=== PATIENT | female | born 1965 | race Two or more races ===

== ENCOUNTER → 2023-06-07 | Outpatient (CLI) | payer BC ==
[2023-06-07 10:05] LABS: Basophils # (auto) 0.1 10 ^3/uL (0-0.2); Basophils % (auto) 0.6 % (0.0-2.0); Eosinophils # (auto) 0.2 10 ^3/uL (0-0.8); Eosinophils % (auto) 1.8 % (0.0-7.0); Hematocrit 44.1 % (36.0-46.0); Hemoglobin 14.5 g/dL (12.2-16.2); Lymphocytes # (auto) 1.9 10 ^3/uL (0.4-5.4); Lymphocytes % (auto) 18.4 % (10.0-50.0); Mean Corpuscular Hemoglobin 30.2 pg (28.0-32.0); Mean Corpuscular Hgb Conc. 32.9 g/dL (32.0-36.0); Mean Corpuscular Volume 91.9 fL (80.0-100.0); Monocytes # (auto) 0.9 10 ^3/uL (0-1.3); Monocytes % (auto) 8.5 % (0.0-12.0); Neutrophils # (auto) 7.2 10 ^3/uL (1.6-8.6); Neutrophils % (auto) 70.7 % (37.0-80.0); Nucleated Red Blood Cells % 0.1 %; Red Blood Cells 4.79 10^6/uL (4.0-5.20); Red Cell Distribution Width 13.6 % (11.8-14.3); White Blood Cell 10.2 10^3/uL (4.4-10.8)
[2023-06-07 10:34] LABS: Alanine Aminotransferase 14 U/L (7-40); Albumin 4.5 g/dL (3.2-4.8); Alkaline Phosphatase 82 U/L (46-116); Anion Gap 7 (5-15); Aspartate Aminotransferase 16 U/L (13-40); BUN/Creatinine Ratio 10.7 (10.0-20.0); Blood Urea Nitrogen 9 mg/dL (9-23); Calcium 9.5 mg/dL (8.5-10.1); Carbon Dioxide 24 mmol/L (20-30); Chloride 107 mmol/L (98-107); Cholesterol 206 mg/dL (< 200); Glucose 91 mg/dL (74-106); HDL Cholesterol 44 mg/dL (40-59); LDL Cholesterol 146 mg/dL (< 100); Potassium 4.1 mmol/L (3.5-5.1); Sodium 138 mmol/L (136-145); Triglycerides 137 mg/dL (< 150)
[2023-06-07 10:35] LABS: Bilirubin, Total 0.3 mg/dL (0.2-1.0); Total Protein 6.6 g/dL (5.7-8.2)
== END | disposition home or self-care (01) ==
LOC: LAB 09:25
PROVIDERS: ATTEND Nurse Practitioner Family
DX: E66.01 Morbid (severe) obesity due to excess calories (principal); E03.9 Hypothyroidism, unspecified; E78.5 Hyperlipidemia, unspecified
CPT/HCPCS: 36415; 80053; 80061; 82306; 84439; 84443; 85025

== ENCOUNTER → 2024-05-08 | Outpatient (CLI) | payer BC ==
[2024-05-08 12:31] LABS: Basophils # (auto) 0.1 10 ^3/uL (0-0.2); Basophils % (auto) 0.8 % (0.0-2.0); Eosinophils # (auto) 0.2 10 ^3/uL (0-0.8); Eosinophils % (auto) 2.4 % (0.0-7.0); Hematocrit 42.5 % (36.0-46.0); Hemoglobin 14.6 g/dL (12.2-16.2); Lymphocytes # (auto) 2.1 10 ^3/uL (0.4-5.4); Lymphocytes % (auto) 21.9 % (10.0-50.0); Mean Corpuscular Hgb Conc. 34.4 g/dL (32.0-36.0); Mean Corpuscular Volume 92.9 fL (80.0-100.0); Monocytes % (auto) 10.7 % (0.0-12.0); Neutrophils # (auto) 6.2 10 ^3/uL (1.6-8.6); Neutrophils % (auto) 64.2 % (37.0-80.0); Nucleated Red Blood Cells % 0.1 %; Platelet Count (auto) 282 10^3/uL (140-450); Red Blood Cells 4.57 10^6/uL (4.0-5.20); Red Cell Distribution Width 13.7 % (11.8-14.3); White Blood Cell 9.7 10^3/uL (4.4-10.8)
[2024-05-08 12:54] LABS: Alanine Aminotransferase 21 U/L (7-40); Albumin 4.5 g/dL (3.2-4.8); Alkaline Phosphatase 77 U/L (46-116); Anion Gap 8 (5-15); Aspartate Aminotransferase 17 U/L (13-40); BUN/Creatinine Ratio 16.5 (10.0-20.0); Blood Urea Nitrogen 14 mg/dL (9-23); Calcium 9.7 mg/dL (8.7-10.4); Carbon Dioxide 25 mmol/L (20-30); Chloride 108 mmol/L (98-107); Glucose 97 mg/dL (74-106); LDL Cholesterol 86 mg/dL (< 100); Sodium 141 mmol/L (136-145); Triglycerides 125 mg/dL (< 150)
[2024-05-08 12:55] LABS: Bilirubin, Total 0.4 mg/dL (0.2-1.0); Cholesterol 152 mg/dL (< 200); HDL Cholesterol 48 mg/dL (40-59); Total Protein 6.5 g/dL (5.7-8.2)
== END | disposition home or self-care (01) ==
LOC: LAB 11:48
PROVIDERS: ATTEND Nurse Practitioner Family
DX: E78.5 Hyperlipidemia, unspecified (principal); E03.9 Hypothyroidism, unspecified; F41.9 Anxiety disorder, unspecified; E66.9 Obesity, unspecified
CPT/HCPCS: 36415; 80053; 80061; 82306; 84443; 85025

== ENCOUNTER → 2024-06-06 | Outpatient (CLI) | payer BC | END | disposition home or self-care (01) | LOC: XYW 13:31 | PROVIDERS: ATTEND Internal Medicine | DX: R00.1 Bradycardia, unspecified (principal); I31.39 Other pericardial effusion (noninflammatory); R07.9 Chest pain, unspecified | CPT/HCPCS: 93306 ==

== ENCOUNTER → 2024-07-03 | Outpatient (CLI) | payer BC ==
[~2024-07-03] VITALS: Ht 165.1 cm; Wt 81.6 kg
[~2024-07-03] MED LIST: ADENOSINE 69 MG in GIVE UN-DILUTED 0 ML IV ONE; ADENOSINE 90 MG/30 ML INJ IV ONE
== END | disposition home or self-care (01) ==
LOC: Rad HDHVI 08:12
PROVIDERS: ATTEND Internal Medicine Cardiovascular Disease
DX: I10 Essential (primary) hypertension (principal); E78.5 Hyperlipidemia, unspecified; E03.9 Hypothyroidism, unspecified; F17.210 Nicotine dependence, cigarettes, uncomplicated; F41.9 Anxiety disorder, unspecified
CPT/HCPCS: 78452; 93005; 96374; A9500; J0153; 96375

== ENCOUNTER 2024-08-12 12:36 | Inpatient (IN) | payer BC, OTHER ==
[~2024-08-12] VITALS: Ht 162.6 cm; Wt 85.5 kg
--- NOTE | 2024-08-12 13:47 | ED.PDOC ---
GI ASSESSMENT HPI Comments 58Y F presents to ED for chief complaint LLQ abd pain with n/v/d, and blood with bowel movements. Pt states blood is bright red. Symptoms began this morning. Pt denies dysuria, chest pain, and SOB. Pt says she has never had a colonoscopy before. Chief Complaint: GI Bleed Time Seen by MD: 12:50 Reviewed Notes: Nurses Notes, Medications, Allergies Allergies: Coded Allergies: No Known Drug Allergy (Verified Allergy, Unknown, 07/03/24) Information Source: Patient Mode of Arrival: Ambulatory Timing: Days Duration: Since onset Quality: Sharp Vomitus: Watery Stool: Blood Streaked, Watery Severity: Mild Recent: None Recent Hx of: None Pain Location: LLQ Modifying Factors: Nothing Associated sign and symptoms: Nausea, Vomiting, Diarrhea, Abdominal Pain, Blood in Stool Past Medical History PAST MEDICAL HISTORY: Thyroid Surgical History: Cholecystectomy, Hysterectomy TELEGRAPH EQUIPMENT MAINTAINER History: Denies all TELEGRAPH EQUIPMENT MAINTAINER Hx Family History Family History: Unknown Social History Smoker: Non-Smoker Alcohol: Denies ETOH Use Drugs: Denies Drug Use Lives In: Home Constitutional: denies: chills, diaphoresis, fatigue, fever, malaise, sweats, weakness, others EENTM: denies: blurred vision, double vision, ear bleeding, ear discharge, ear drainage, ear pain, ear ringing, eye pain, eye redness, hearing loss, mouth pain, mouth swelling, nasal discharge, nose bleeding, nose congestion, nose pain, photophobia, tearing, throat pain, throat swelling, voice changes, others Respiratory: denies: cough, hemoptysis, orthopnea, SOB at rest, shortness of breath, SOB with excertion, stridor, wheezing, others Cardiovascular: denies: chest pain, dizzy spells, diaphoresis, Dyspnea on exertion, edema, irregular heart beat, left arm pain, lightheadedness, palpitations, PND, syncope, others Gastrointestinal: reports: abdominal pain, blood streaked bowels, diarrhea, nausea, rectal bleeding, vomiting; denies: abdomen distended, constipated, dysphagia, difficulty swallowing, hematemesis, melena, poor appetite, poor fluid intake, rectal pain, others Genitourinary: denies: abnormal vagina bleeding, burning, dyspareunia, dysuria, flank pain, frequency, hematuria, incontinence, pain, , vagina discharge, urgency, others Neurological: denies: dizziness, fainting, headache, left sided numbness, left sided weakness, numbness, paresthesia, pre-existing deficit, right sided numbness, right sided weakness, seizure, speech problems, tingling, tremors, weakness, others Musculoskeletal: denies: back pain, gout, joint pain, joint swelling, muscle pain, muscle stiffness, neck pain, others Integumetry: denies: bruises, change in color, change in hair/nails, dryness, laceration, lesions, lumps, rash, wounds, others Allergic/Immunocompromised: denies: Difficulty Healing, Frequent Infections, Hives, Itching, others Hematologic/Lymphatic: denies: anemia, blood clots, easy bleeding, easy bruising, swollen glands, others Endocrine: denies: excessive hunger, excessive sweating, excessive thirst, excessive urination, flushing, intolerance to cold, intolerance to heat, unexplained weight gain, unexplained weight loss, others Psychiatric: denies: anxiety, bipolar disorder, depression, hopeless, panic disorder, schizophrenia, sleepless, suicidal, others All Other Systems: Reviewed and Negative Physical Exam General Appearance: No Apparent Distress, Normal HEENT: Normal ENT Inspection, Pharynx Normal, TMs Normal Neck: Full Range of Motion, Non-Tender, Normal, Normal Inspection Respiratory: Chest Non-Tender, Lungs Clear, No Accessory Muscle Use, No Respiratory Distress, Normal Breath Sounds Cardiovascular: No Edema, No JVD, No Murmur, No Gallop, Normal Peripheral Pulses, Regular Rate/Rhythm Breast Exam: Deferred Gastrointestinal: No Organomegaly, Non Tender, No Pulsatile Mass, Normal Bowel Sounds, Soft Genitalia: Deferred Pelvic: Deferred Rectal: Deferred Extremities: No calf tenderness, Normal capillary refill, Normal inspection, Normal range of motion, Non-tender, No pedal edema Musculoskeletal : Apperance: Normal Neurologic: Alert, death surveys coder II-XII nml as Tested, No Motor Deficits, Normal Affect, Normal Mood, No Sensory Deficits Cerebellar Function: NOT DONE Reflexes: NOT DONE Skin: Dry, Normal Color, Warm Lymphatic: No Adenopathy Was a procedure done? Was a procedure done?: No GI differential Dx Differential Diagnosis: Diverticular disease, Gastritis/PUD, Gastroenteritis, Inflammatory BD, Electrolyte Imbalance X-Ray, Labs, Meds, VS Vital Signs Date Time Temp Pulse Resp B/P (MAP) Pulse Ox O2 Delivery O2 Flow Rate FiO2 08/12/24 18:27 76 18 101/51 08/12/24 18:10 80 16 106/55 08/12/24 17:46 98.6 80 17 106/55 (72) 98 98.6 08/12/24 17:46 80 17 98 Room Air 08/12/24 13:08 98.9 78 16 109/70 (83) 96 Lab Test 08/12/24 18:04 08/12/24 13:17 Range/Units Urine Color Yellow Yellow Urine Clarity Clear Clear Urine pH 6.0 5.0-9.0 Urine Specific [place] 1.026 1.001-1.035 Urine Protein 1+ H Negative Urine Ketones 1+ H Negative Urine Blood 1+ H Negative /uL Urine Nitrite Negative Negative Urine Bilirubin Negative Negative Urine Urobilinogen 2 H Negative mg/dL Urine Leukocyte Esterase Trace Negative /uL Urine RBC 21 0 - 4 /hpf Urine WBC 2 0 - 5 /hpf Urine Squamous Epithelial Cells Few <5 /hpf Urine Bacteria None seen None Seen /hpf Urine Mucus Few None Seen Urine Glucose Normal Normal mg/dL White Blood Count 9.8 4.4-10.8 10^3/uL Red Blood Count 5.07 4.0-5.20 10^6/uL Hemoglobin 16.1 12.2-16.2 g/dL Hematocrit 46.8 H 36.0-46.0 % Mean Corpuscular Volume 92.4 80.0-100.0 fL Mean Corpuscular Hemoglobin 31.8 28.0-32.0 pg Mean Corpuscular Hemoglobin Concent 34.4 32.0-36.0 g/dL Red Cell Distribution Width 14.2 11.8-14.3 % Platelet Count 265 140-450 10^3/uL Mean Platelet Volume 8.0 6.9-10.8 fL Neutrophils (%) (Auto) 68.3 37.0-80.0 % Lymphocytes (%) (Auto) 14.1 10.0-50.0 % Monocytes (%) (Auto) 16.9 H 0.0-12.0 % Eosinophils (%) (Auto) 0.3 0.0-7.0 % Basophils (%) (Auto) 0.4 0.0-2.0 % Neutrophils # (Auto) 6.7 1.6-8.6 10 ^3/uL Lymphocytes # (Auto) 1.4 0.4-5.4 10 ^3/uL Monocytes # (Auto) 1.7 H 0-1.3 10 ^3/uL Eosinophils # (Auto) 0 0-0.8 10 ^3/uL Basophils # (Auto) 0 0-0.2 10 ^3/uL Nucleated Red Blood Cells 0.0 % Sodium Level 139 136-145 mmol/L Potassium Level 3.9 3.5-5.1 mmol/L Chloride Level 108 H 98-107 mmol/L Carbon Dioxide Level 25 20-31 mmol/L Anion Gap 6 5-15 Blood Urea Nitrogen 9 9-23 mg/dL Creatinine 0.90 0.550-1.02 mg/dL Glomerular Filtration Rate Calc 74 >90 mL/min BUN/Creatinine Ratio 10.0 10.0-20.0 Serum Glucose 98 74-106 mg/dL Lactic Acid Level 1.1 0.4-2.0 mmol/L Calcium Level 10.0 8.7-10.4 mg/dL Total Bilirubin 0.3 0.2-1.0 mg/dL Aspartate Amino Transferase (AST) 150 H 13-40 U/L Alanine Aminotransferase (ALT) 196 H 7-40 U/L Alkaline Phosphatase 188 H 46-116 U/L Total Protein 7.2 5.7-8.2 g/dL Albumin 4.9 H 3.2-4.8 g/dL Lipase 41 12-53 U/L Current Medications Medications (Trade) Dose Ordered Sig/Doron Route Start Time Stop Time Status Last Admin Sodium Chloride 1,000 ml @ 1,000 mls/hr Q1H ONCE IV 08/12/24 13:00 08/12/24 13:59 VT 08/12/24 17:50 Ondansetron HCl (Zofran) 4 mg ONCE ONCE IV 08/12/24 13:00 08/12/24 13:01 VT 08/12/24 18:08 Pantoprazole Sodium (Protonix) 40 mg ONCE ONCE IV 08/12/24 13:00 08/12/24 13:01 VT 08/12/24 18:08 Morphine Sulfate 4 mg ONCE ONCE IV 08/12/24 13:00 08/12/24 13:01 VT 08/12/24 18:10 Time of 1ST Reevaluation: 13:20 Reevaluation 1ST: Unchanged Patient Education/Counseling: Diagnosis, Treatment Family Education/Counseling: No Family Present Departure 1 Departure Time of Disposition: 19:14 (Patient presented with abdominal pain that was concerning for possible appendicits, gastritis, cholecystitis, colitis, ga stroenteritis, sbo, or orther possible surgical emergency. Data: 1. I ordered and reviewed the result of at least 3 labs including a CBC, BMP, and Urinalysis. 2. I independently interpreted the following tests: CT Abdoment and Pelvis is concerning for benign abdomen .Risk:This patient has a high risk of morbidity due to further diagnostic testing or treatment and may suffer from an acute abdominal process disorder. Workup reveals likely lower GI bleed and patient should be admitted for further workup. and possible expert consultation. ) Impression: Primary Impression: Bright red blood per rectum Additional Impression: Left lower quadrant abdominal pain Disposition: ADMITTED INPATIENT Admit to: Med Surg Condition: Serious Critical Care Note Critical Care Time?: Yes Critical care comment: Severe abdominal pain Authorized and Performed by: Belle Seo MD Total critical care time: Approximately 32 minutes Due to a high probability of clinically significant, life threatening deterioration, the patient required my highest level of preparedness to intervene emergently and I personally spent this critical care time directly and personally managing the patient. This critical care time included obtaining a history; examining the patient; pulse oximetry; ordering and review of studies; arranging urgent treatment with development of a management plan; evaluation of patient's response to treatment; frequent reassessment; and, discussions with other providers. This critical care time was performed to assess and manage the high probability of imminent, life-threatening deterioration that could result in multi-organ failure. It was exclusive of separately billable procedures and treating other patients and teaching time. Please see my other sections and the rest of the note for further information on patient assessment and treatment. Stability Stability form required: No Heart Score Heart Score: Heart Score Response (Comments) Value History N/A 0 EKG N/A 0 Age N/A 0 Risk Factors N/A 0 Troponin N/A 0 Total 0 I personally scribed for BELLE SEO MD ([email or web address]) on 08/12/24 at 13:47. Electronically submitted by Mala Cole ([email or web address]). BELLE SEO MD Aug 12, 2024 13:47
[2024-08-12 13:48] LABS: Basophils # (auto) 0 10 ^3/uL (0-0.2); Basophils % (auto) 0.4 % (0.0-2.0); Eosinophils # (auto) 0 10 ^3/uL (0-0.8); Eosinophils % (auto) 0.3 % (0.0-7.0); Hematocrit 46.8 % (36.0-46.0); Hemoglobin 16.1 g/dL (12.2-16.2); Lymphocytes # (auto) 1.4 10 ^3/uL (0.4-5.4); Lymphocytes % (auto) 14.1 % (10.0-50.0); Mean Corpuscular Hemoglobin 31.8 pg (28.0-32.0); Mean Corpuscular Hgb Conc. 34.4 g/dL (32.0-36.0); Mean Corpuscular Volume 92.4 fL (80.0-100.0); Monocytes # (auto) 1.7 10 ^3/uL (0-1.3); Monocytes % (auto) 16.9 % (0.0-12.0); Neutrophils # (auto) 6.7 10 ^3/uL (1.6-8.6); Neutrophils % (auto) 68.3 % (37.0-80.0); Platelet Count (auto) 265 10^3/uL (140-450); Red Blood Cells 5.07 10^6/uL (4.0-5.20); Red Cell Distribution Width 14.2 % (11.8-14.3); White Blood Cell 9.8 10^3/uL (4.4-10.8)
[2024-08-12 13:55] LABS: Anion Gap 6 (5-15); Carbon Dioxide 25 mmol/L (20-31); Glucose 98 mg/dL (74-106); Lipase 41 U/L (12-53); Potassium 3.9 mmol/L (3.5-5.1); Sodium 139 mmol/L (136-145)
[2024-08-12 13:56] LABS: Bilirubin, Total 0.3 mg/dL (0.2-1.0); Total Protein 7.2 g/dL (5.7-8.2)
[2024-08-12 14:10] LABS: Alanine Aminotransferase 196 U/L (7-40); Albumin 4.9 g/dL (3.2-4.8); Alkaline Phosphatase 188 U/L (46-116); Aspartate Aminotransferase 150 U/L (13-40); Blood Urea Nitrogen 9 mg/dL (9-23); Chloride 108 mmol/L (98-107)
[2024-08-12] MEDS: SODIUM CHLORIDE 0.9% 1,000 ML IV ONE (17:50)
[2024-08-12 18:06] LABS: Urine Bacteria None Seen /hpf (None Seen)
[2024-08-12] MEDS: ONDANSETRON HCL 4 MG/2 ML VIAL IV ONE (18:08)
[2024-08-12] MEDS: PANTOPRAZOLE 40 MG/10 ML VIAL INJ IV ONE (18:08)
[2024-08-12] MEDS: MORPHINE SULFATE 4 MG/ML SYR/VIAL IV ONE (18:10)
[2024-08-12 18:18] LABS: Urine Blood 1+ /uL (Negative); Urine Clarity Clear (Clear); Urine Color Yellow (Yellow); Urine Mucus FEW (None Seen); Urine Protein, UAD 1+ (Negative); Urine Specific Gravity 1.026 (1.001-1.035); Urine Urobilinogen 2 mg/dL (Negative); Urine WBC 2 /hpf (0 - 5)
--- NOTE | 2024-08-12 19:05 | DVH ---
Exam: CT CT AB PEL WITH IV CON ONLY History: abdominal pain Comparison Study: None available at time of dictation. Contrast: Type of contrast: Omnipaque 300 Contrast injected: 100 mL Contrast wasted: 0 TECHNIQUE: A digital slip seat coverer image was obtained. During the uneventful, intravenous administration of c ontrast material, multislice data acquisition was obtained through the abdomen and pelvis. The data s et was subsequently reconstructed into axial images. Images were reviewed on a work station using a c ombination of axial and multiplanar using a variety of window levels and settings. Radiation Dose Information: CT Dose: CTDI volume is 20.54 mGy. Dose-length product is 1038.44 mGy*cm FINDINGS: Lung Bases: No acute or significant lung base finding. Normal heart size. No pleural or pericardial effusion. Liver: The liver is normal in size. No focal lesions. Normal hepatic vascular enhancement. Gallbladder and Biliary Tree: Gallbladder has been surgically removed. Spleen: Unremarkable Pancreas: The pancreas is normal in appearance without focal lesions or abnormal enhancement. Adrenal Glands: Unremarkable Kidneys: Kidneys demonstrate normal symmetric enhancement without focal lesions, calculi or hydroneph rosis. Bladder: Unremarkable Bowel: The stomach is grossly normal in appearance. Small bowel and colon are normal in caliber and d istribution. The appendix is not visualized; however, no secondary findings of acute appendicitis id entified. Ascites: Absent Lymphadenopathy: No mesenteric, retroperitoneal or periportal lymphadenopathy. Abdominal Wall and Mesentery: Unremarkable. Vasculature: The visualized abdominal aorta is normal in size and caliber. Abdominal and pelvic vess els demonstrate normal enhancement. Pelvic Organs: Unremarkable Musculoskeletal: No aggressive focal bony lesions, acute fractures or dislocation. Soft tissues: Unremarkable. IMPRESSION: 1. No acute abnormality in the abdomen or pelvis. 2. No free air or free fluid 3. No CT findings to suggest bowel obstruction 4. No nephrolithiasis or hydronephrosis All CT scans at this medical facility are performed using dose modulation techniques as appropriate t o a performed exam including the following: Automated exposure control was utilized; adjustment of th e MA and/or KV according to patient size; and use of iterative reconstruction technique.
[2024-08-12] MEDS ORDERED: HYDROcodone-ACET 5/325MG TAB PO PRN (19:45)
[2024-08-12] MEDS ORDERED: IBUPROFEN 600 MG TAB PO PRN (19:45)
--- NOTE | 2024-08-12 20:21 | DVHHP2 ---
History of Present Illness Reason for Visit: Bright red blood per rectum History of Present Illness The patient is a 58-year-old female with past medical history of hyperlipidemia and thyroid disease who presented to [facility] ED with complaint of left lower quadrant abdominal pain. Patient reports symptoms progressively get worse with diarrhea, nausea, vomiting, and blood with bowel movement. Patient was seen and evaluated in the ED, laboratory data shows WBC 9.8, hemoglobin 16.1, hematocrit 46.8, platelets 265, sodium 139, potassium 3.9, BUN 9, creatinine 0.90, GFR 74, glucose 98, AST 150, ALT 196, lipase 41, blood pressure 106/55, heart rate 80, temperature 98.6 F, O2 saturation 98% on room air. Abdomen/pelvis CT showed no acute abdominal or pelvic abnormality. Please see medication orders section in the computer. On my assessment, patient denied chest pain, no headache, no dizziness, no diarrhea, no nausea, no vomiting, no fever, no chills, no history of colonoscopy. Patient was admitted for further evaluation and medical management. Past Medical History Thyroid, hyperlipidemia Past Surgical History Cholecystectomy, Hysterectomy Family History Reviewed, noncontributory to the management of this case. Past Social History The patient lives at home, denies smoking, alcohol or illicit drugs abuse. Review of Systems Constitutional: No: Fever, Chills, Sweats, Weakness, Malaise, Other Eyes: No: Pain, Vision change, Conjunctivae inflammation, Eyelid inflammation, Other, Redness ENT: No: Ear pain, Ear discharge, Nose pain, Nose discharge, Nose congestion, Mouth pain, Mouth swelling, Throat pain, Throat swelling, Other Respiratory: No: Cough, Dry, Shortness of breath, SOB with excertion, Wheezing, Hemoptysis, Pleuritic Pain, Sputum, Wheezing, Other Cardiovascular: No: Chest Pain, Palpitations, Orthopnea, Paroxysmal Noc. Dyspnea, Edema, Lt Headedness, Other Gastrointestinal: Nausea, Vomiting, Abdominal Pain, Diarrhea, Other ( blood streaked bowels, rectal bleeding.); No: Constipation, Melena, Hematochezia Genitourinary: No Dysuria, No Frequency, No Incontinence, No Hematuria, No Retention, No Other Musculoskeletal: No: other, neck pain, shoulder pain, arm pain, back pain, hand pain, leg pain, foot pain Skin: No: Rash, Lesions, Jaundice, Bruising, Other Neurological: No: Weakness, Numbness, Incoordination, Change in speech, Confusion, Seizures, Other Allergies: Coded Allergies: No Known Drug Allergy (Verified Allergy, Unknown, 07/03/24) Medications Current Medications Medications Dose Ordered Sig/Doron Route Start Time Stop Time Status Last Admin Dose Admin Pantoprazole Sodium 40 mg BID IV 08/12/24 22:00 Levothyroxine Sodium 100 mcg QAM@0600 PO 08/13/24 06:00 Atorvastatin Calcium 20 mg HS PO 08/12/24 22:00 Trazodone HCl 100 mg HS PO 08/12/24 22:00 Ibuprofen 600 mg Q6HP PRN PO 08/12/24 19:45 Acetaminophen/ Hydrocodone Bitart 1 tab Q4HP PRN PO 08/12/24 19:45 Ondansetron HCl 4 mg Q4HP PRN IV 08/12/24 19:45 Docusate Sodium 100 mg BIDPRN PRN PO 08/12/24 19:45 Morphine Sulfate 2 mg Q4HPRN PRN IV 08/12/24 19:45 Exam Vital Signs Vital Signs Date Time Temp Pulse Resp B/P (MAP) Pulse Ox O2 Delivery O2 Flow Rate FiO2 08/12/24 18:27 76 18 101/51 08/12/24 17:46 98.6 98 98.6 08/12/24 17:46 Room Air General Appearance: Alert, Oriented X3, Cooperative, No acute distress HEENT: Atraumatic, PERRLA, EOMI, Mucous membr. moist/pink Respiratory: Clear to auscultation, Normal air movement Cardiovascular: Regular rate, Normal S1, Normal S2, No murmurs Abdominal: Normal bowel sounds, Soft, No hepatospenomegaly, No masses, Other (Reports tenderness) Extremities: No clubbing, No cyanosis, No edema, Normal pulses, No tenderness/swelling Skin: No rashes, No breakdown, No significant lesion Neuro: Normal gait, Normal speech, Strength at 5/5 X4 ext, Normal tone, Sensation intact, Cranial nerves 3-12 NL, Reflexes 2+ Psych/Mental Status: Mental status NL, Mood NL Labs/Xrays Labs Test 08/12/24 18:04 08/12/24 13:17 Range/Units Urine Color Yellow Yellow Urine Clarity Clear Clear Urine pH 6.0 5.0-9.0 Urine Specific [place] 1.026 1.001-1.035 Urine Protein 1+ H Negative Urine Ketones 1+ H Negative Urine Blood 1+ H Negative /uL Urine Nitrite Negative Negative Urine Bilirubin Negative Negative Urine Urobilinogen 2 H Negative mg/dL Urine Leukocyte Esterase Trace Negative /uL Urine RBC 21 0 - 4 /hpf Urine WBC 2 0 - 5 /hpf Urine Squamous Epithelial Cells Few <5 /hpf Urine Bacteria None seen None Seen /hpf Urine Mucus Few None Seen Urine Glucose Normal Normal mg/dL White Blood Count 9.8 4.4-10.8 10^3/uL Red Blood Count 5.07 4.0-5.20 10^6/uL Hemoglobin 16.1 12.2-16.2 g/dL Hematocrit 46.8 H 36.0-46.0 % Mean Corpuscular Volume 92.4 80.0-100.0 fL Mean Corpuscular Hemoglobin 31.8 28.0-32.0 pg Mean Corpuscular Hemoglobin Concent 34.4 32.0-36.0 g/dL Red Cell Distribution Width 14.2 11.8-14.3 % Platelet Count 265 140-450 10^3/uL Mean Platelet Volume 8.0 6.9-10.8 fL Neutrophils (%) (Auto) 68.3 37.0-80.0 % Lymphocytes (%) (Auto) 14.1 10.0-50.0 % Monocytes (%) (Auto) 16.9 H 0.0-12.0 % Eosinophils (%) (Auto) 0.3 0.0-7.0 % Basophils (%) (Auto) 0.4 0.0-2.0 % Neutrophils # (Auto) 6.7 1.6-8.6 10 ^3/uL Lymphocytes # (Auto) 1.4 0.4-5.4 10 ^3/uL Monocytes # (Auto) 1.7 H 0-1.3 10 ^3/uL Eosinophils # (Auto) 0 0-0.8 10 ^3/uL Basophils # (Auto) 0 0-0.2 10 ^3/uL Nucleated Red Blood Cells 0.0 % Sodium Level 139 136-145 mmol/L Potassium Level 3.9 3.5-5.1 mmol/L Chloride Level 108 H 98-107 mmol/L Carbon Dioxide Level 25 20-31 mmol/L Anion Gap 6 5-15 Blood Urea Nitrogen 9 9-23 mg/dL Creatinine 0.90 0.550-1.02 mg/dL Glomerular Filtration Rate Calc 74 >90 mL/min BUN/Creatinine Ratio 10.0 10.0-20.0 Serum Glucose 98 74-106 mg/dL Lactic Acid Level 1.1 0.4-2.0 mmol/L Calcium Level 10.0 8.7-10.4 mg/dL Total Bilirubin 0.3 0.2-1.0 mg/dL Aspartate Amino Transferase (AST) 150 H 13-40 U/L Alanine Aminotransferase (ALT) 196 H 7-40 U/L Alkaline Phosphatase 188 H 46-116 U/L Total Protein 7.2 5.7-8.2 g/dL Albumin 4.9 H 3.2-4.8 g/dL Lipase 41 12-53 U/L PATIENT: CONNIE JETER ACCT: [id number] UNIT: [id number] : 1965 LOC: ER ROOM / BED: / AGE / SEX: 58 / F ADM STATUS: REG ER SERVICE 1253 ORDERING PHYSICIAN: BELLE WORTHINGTON MD PROCEDURE(s): ABPLIV - CT AB PEL WITH IV CON ONLY REASON: abdominal pain ORDER NUMBER(s): [id number], ACCESSION NUMBER(s): [id number] Exam: CT CT AB PEL WITH IV CON ONLY History: abdominal pain Comparison Study: None available at time of dictation. Contrast: Type of contrast: Omnipaque 300 Contrast injected: 100 mL Contrast wasted: 0 TECHNIQUE: A digital value stream manager image was obtained. During the uneventful, intravenous administration of contrast material, multislice data acquisition was obtained through the abdomen and pelvis. The data set was subsequently reconstructed into axial images. Images were reviewed on a work station using a combination of axial and multiplanar using a variety of window levels and settings. Radiation Dose Information: CT Dose: CTDI volume is 20.54 mGy. Dose-length product is 1038.44 mGy*cm FINDINGS: Lung Bases: No acute or significant lung base finding. Normal heart size. No pleural or pericardial effusion. Liver: The liver is normal in size. No focal lesions. Normal hepatic vascular enhancement. Gallbladder and Biliary Tree: Gallbladder has been surgically removed. Spleen: Unremarkable Pancreas: The pancreas is normal in appearance without focal lesions or abnormal enhancement. Adrenal Glands: Unremarkable Kidneys: Kidneys demonstrate normal symmetric enhancement without focal lesions, calculi or hydronephrosis. Bladder: Unremarkable Bowel: The stomach is grossly normal in appearance. Small bowel and colon are normal in caliber and distribution. The appendix is not visualized; however, no secondary findings of acute appendicitis identified. Ascites: Absent Lymphadenopathy: No mesenteric, retroperitoneal or periportal lymphadenopathy. Abdominal Wall and Mesentery: Unremarkable. Vasculature: The visualized abdominal aorta is normal in size and caliber. Abdominal and pelvic vessels demonstrate normal enhancement. Pelvic Organs: Unremarkable Musculoskeletal: No aggressive focal bony lesions, acute fractures or dislocation. Soft tissues: Unremarkable. IMPRESSION: 1. No acute abnormality in the abdomen or pelvis. 2. No free air or free fluid 3. No CT findings to suggest bowel obstruction 4. No nephrolithiasis or hydronephrosis Assessment/Plan Assessment/Plan Bright red blood per rectum Elevated liver enzymes Left lower quadrant abdominal pain Intractable nausea and vomiting Plan 1. Admit to med surge unit 2. Breathing treatment 3. Pain control management 4. Management of fluids and electrolytes 5. Consultation for hospitalist 6. Diagnostic tests abdomen/pelvis CT 7. DVT prophylaxis-on SCDs 8. Repeat labs CBC, CMP in a.m. 9. Continue with current medical management 10. Treatment plan discussed with patient and RN. Patient verbalized understanding. Plan discussed with: Patient, Other (RN) My Orders Orders - ROBYN LOCKWOOD DNP Procedure Category Date Status Time * [facility] CONS 08/12/24 Transmitted 19:32 Pantoprazole PHA 08/12/24 In Process (Protonix) 22:00 Levothyroxine Tablet PHA 08/13/24 In Process (Synthroid Tablet) 06:00 Thyroid Stimulating LAB 08/12/24 In Process Hormone 19:32 Atorvastatin (Lipitor) PHA 08/12/24 In Process 22:00 Trazodone Hcl PHA 08/12/24 In Process (Desyrel) 22:00 Ibuprofen Tablet PHA 08/12/24 In Process (Motrin Tablet) 19:45 Allergies IRMA 08/12/24 In Process 19:32 Code Status CODE 08/12/24 Transmitted 19:32 Oxygen Per Hour RT 08/12/24 Transmitted 19:32 Hydrocodone-Acet PHA 08/12/24 In Process 5/325mg Tab ([place]son 19:45 Ondansetron Hcl PHA 08/12/24 In Process (Zofran) 19:45 Docusate Sodium PHA 08/12/24 In Process Capsule (Colace 19:45 Complete Blood Count LAB 08/13/24 Verified 04:00 Comprehensive LAB 08/13/24 Verified Metabolic Panel 04:00 Cardiac DIET 08/13/24 Transmitted Diet-2gna,Lofat,Lochol Breakfast Condition: Serious IRMA 08/12/24 In Process 19:32 Bedrest With Bathroom IRMA 08/12/24 In Process Privileg 19:32 Morphine Sulfate PHA 08/12/24 In Process Injection 19:45 Sequential IRMA 08/12/24 In Process Compression Device Problem List: (1) Bright red blood per rectum (2) Elevated liver enzymes (3) Left lower quadrant abdominal pain (4) Intractable nausea and vomiting Date of Service: Aug 12, 2024 Billing Provider: ROBYN LOCKWOOD DNP Common Visit Codes: [id number] INP/OBS CARE (HIGH) ROBYN LOCKWOOD DNP Aug 12, 2024 20:21
[2024-08-12] MEDS ORDERED: NITROGLYCERIN 0.4 MG SL TAB SL PRN (20:30)
[2024-08-12] MEDS ORDERED: MORPHINE SULFATE INJ 2 MG/ml SYRG IV PRN (20:30)
[2024-08-12] MEDS: IOHEXOL 300 MG/ML 100ML BOTTLE IJ ONE (20:38)
[2024-08-12 22:00] VITALS: BP 97/50; PULSE 61; RESP 20; TEMP 98.2; O2SAT 95
[2024-08-12] MEDS: traZODone HCL 50 MG TAB PO SCH (22:00)
[2024-08-12] MEDS: ATORVASTATIN 20 MG TAB PO SCH (23:55)
[2024-08-12] MEDS: PANTOPRAZOLE 40 MG/10 ML VIAL INJ IV SCH (23:56)
[2024-08-13] VITALS (7 sets, daily range): BP systolic 98–120; BP diastolic 55–78; PULSE 60–99; RESP 16–20; TEMP 97.9–98.3; O2SAT 93–98
[2024-08-13] MEDS: ONDANSETRON HCL 4 MG/2 ML VIAL IV PRN (02:37)
[2024-08-13] MEDS: MORPHINE SULFATE INJ 2 MG/ml SYRG IV PRN (02:38)
[2024-08-13] MEDS ORDERED: ESCI20TA PO (04:53)
[2024-08-13] MEDS ORDERED: METH-1181 PO (04:53)
[2024-08-13] MEDS ORDERED: LEVO100T8 PO (04:53)
[2024-08-13] MEDS ORDERED: ATOR20TA PO (04:53)
[2024-08-13] MEDS: LEVOTHYROXINE SODIUM 100 MCG TAB PO SCH (06:15)
[2024-08-13 06:47] LABS: Albumin 3.9 g/dL (3.2-4.8); Anion Gap 5 (5-15); BUN/Creatinine Ratio 7.9 (10.0-20.0); Calcium 8.9 mg/dL (8.7-10.4); Carbon Dioxide 25 mmol/L (20-31); Glucose 96 mg/dL (74-106); Potassium 3.8 mmol/L (3.5-5.1); Sodium 140 mmol/L (136-145); Total Protein 5.9 g/dL (5.7-8.2)
[2024-08-13 06:50] LABS: Hematocrit 42.5 % (36.0-46.0); Hemoglobin 14.3 g/dL (12.2-16.2); Mean Corpuscular Hemoglobin 31.7 pg (28.0-32.0); Mean Corpuscular Hgb Conc. 33.7 g/dL (32.0-36.0); Mean Corpuscular Volume 94.1 fL (80.0-100.0); Platelet Count (auto) 219 10^3/uL (140-450); Red Blood Cells 4.52 10^6/uL (4.0-5.20); Red Cell Distribution Width 14.6 % (11.8-14.3); White Blood Cell 7.5 10^3/uL (4.4-10.8)
[2024-08-13 06:55] LABS: Alanine Aminotransferase 287 U/L (7-40); Alkaline Phosphatase 229 U/L (46-116); Aspartate Aminotransferase 234 U/L (13-40); Bilirubin, Total 0.2 mg/dL (0.2-1.0); Blood Urea Nitrogen 6 mg/dL (9-23); Chloride 110 mmol/L (98-107)
[2024-08-13 07:23] LABS: Band Neutrophils % (manual) 0; Basophils % (manual) 0 (0.0-2.0); Blast Cells 0; Eosinophils % (manual) 0 (0-7); Metamyelocytes % 0; Myelocytes % 0; Promyelocytes % 0; Reactive Lymphocytes 0
[2024-08-13 08:47] LABS: Lymphocytes % (manual) 34 (10.0-50.0); Monocytes % (manual) 7 (0-12); Platelet Estimate Adequate
--- NOTE | 2024-08-13 13:00 | DVHINCON2 ---
Date of service: Aug 13, 2024 Referring Physician Srinivas Zayas Reason for Consultation Rectal bleeding and elevated liver enzymes History of Present Illness The patient is a 58-year-old female with past medical history of hyperlipidemia and thyroid disease who presented to [facility] ED with complaint of left lower quadrant abdominal pain. Patient reports symptoms progressively get worse with diarrhea, nausea, vomiting, and blood with bowel movement. Patient was seen and evaluated in the ED, laboratory data shows WBC 9.8, hemoglobin 16.1, hematocrit 46.8, platelets 265, sodium 139, potassium 3.9, BUN 9, creatinine 0.90, GFR 74, glucose 98, AST 150, ALT 196, lipase 41, blood pressure 106/55, heart rate 80, temperature 98.6 F, O2 saturation 98% on room air. Abdomen/pelvis CT showed no acute abdominal or pelvic abnormality. No prior colonoscopy Past Medical History Past Medical History Thyroid, hyperlipidemia Past Surgical History Past Surgical History Cholecystectomy, Hysterectomy Allergies: Coded Allergies: No Known Drug Allergy (Verified Allergy, Unknown, 07/03/24) Home Meds Reported Medications Levothyroxine Sodium (Levothyroxine Sodium) 100 Mcg Tab, PO QAM for 30 Days, MCG 08/13/24 Atorvastatin Calcium (Lipitor) 20 Mg Tab, 20 MG PO, TAB 08/13/24 Methocarbamol (Methocarbamol) 500 Mg Tab, 500 MG PO for 30 Days, MG 08/13/24 Escitalopram Oxalate (Lexapro) 20 Mg Tab, 1 TAB PO DAILY, #90 TAB 3 Refills 08/13/24 Current Medications Current Medications Medications (Trade) Dose Ordered Sig/Doron Route PRN Reason Start Time Stop Time Status Last Admin Pantoprazole Sodium (Protonix) 40 mg BID IV 08/12/24 22:00 08/13/24 08:25 Levothyroxine Sodium (Synthroid Tablet) 100 mcg QAM@0600 PO 08/13/24 06:00 08/13/24 06:15 Atorvastatin Calcium (Lipitor) 20 mg HS PO 08/12/24 22:00 08/12/24 23:55 Trazodone HCl (Desyrel) 100 mg HS PO 08/12/24 22:00 Ibuprofen (Motrin Tablet) 600 mg Q6HP PRN PO PAIN SCALE 1-3 OR TEMP>100.4 08/12/24 19:45 08/13/24 11:12 DC Acetaminophen/ Hydrocodone Bitart (Driscoll 5/325MG Tab) 1 tab Q4HP PRN PO MODERATE PAIN (4-6 PAIN SCALE) 08/12/24 19:45 Ondansetron HCl (Zofran) 4 mg Q4HP PRN IV NAUSEA / VOMITING 08/12/24 19:45 08/13/24 02:37 Docusate Sodium (Colace Capsule) 100 mg BIDPRN PRN PO FOR CONSTIPATION 08/12/24 19:45 Morphine Sulfate 2 mg Q4HPRN PRN IV SEVERE PAIN (7-10 PAIN SCALE) 08/12/24 19:45 08/13/24 08:26 Nitroglycerin (Ntrostat Sublingual) 0.4 mg Q5MINP PRN SL FOR CHEST PAIN 08/12/24 20:30 Morphine Sulfate 2 mg Q30M PRN IV FOR CHEST PAIN 08/12/24 20:30 Vital Signs Vital Signs Date Time Temp Pulse Resp B/P (MAP) Pulse Ox O2 Delivery O2 Flow Rate FiO2 08/13/24 09:00 98.1 61 17 101/63 (76) 96 98.1 08/13/24 02:37 Room Air* 0 21 Physical Exam General Appearance: Alert, Oriented X3, Cooperative, No acute distress HEENT: Atraumatic, PERRLA, EOMI, Mucous membr. moist/pink Respiratory: Clear to auscultation, Normal air movement Cardiovascular: Regular rate, Normal S1, Normal S2, No murmurs Abdominal: Normal bowel sounds, Soft, No hepatospenomegaly, No masses, Other (Reports tenderness) Extremities: No clubbing, No cyanosis, No edema, Normal pulses, No tenderness/swelling Skin: No rashes, No breakdown, No significant lesion Neuro: Normal gait, Normal speech, Strength at 5/5 X4 ext, Normal tone, Sensation intact, Cranial nerves 3-12 NL, Reflexes 2+ Psych/Mental Status: Mental status NL, Mood NL Labs/Diagnostic Data Labs Test 08/13/24 05:57 08/12/24 18:04 08/12/24 13:17 Range/Units White Blood Count 7.5 4.4-10.8 10^3/uL Red Blood Count 4.52 4.0-5.20 10^6/uL Hemoglobin 14.3 12.2-16.2 g/dL Hematocrit 42.5 36.0-46.0 % Mean Corpuscular Volume 94.1 80.0-100.0 fL Mean Corpuscular Hemoglobin 31.7 28.0-32.0 pg Mean Corpuscular Hemoglobin Concent 33.7 32.0-36.0 g/dL Red Cell Distribution Width 14.6 H 11.8-14.3 % Platelet Count 219 140-450 10^3/uL Mean Platelet Volume 7.9 6.9-10.8 fL Neutrophils (%) (Auto) 37.0-80.0 % Lymphocytes (%) (Auto) 10.0-50.0 % Monocytes (%) (Auto) 0.0-12.0 % Basophils (%) (Auto) 0.0-2.0 % Neutrophils # (Auto) 1.6-8.6 10 ^3/uL Lymphocytes # (Auto) 0.4-5.4 10 ^3/uL Monocytes # (Auto) 0-1.3 10 ^3/uL Differential Total Cells Counted 100.0 100 Neutrophils % (Manual) 59 37.0-80.0 Band Neutrophils % (Manual) 0 Lymphocytes % (Manual) 34 10.0-50.0 Monocytes % (Manual) 7 0-12 Eosinophils % (Manual) 0 0-7 Basophils % (Manual) 0 0.0-2.0 Metamyelocytes % (manual) 0 Myelocytes % (Manual) 0 Promyelocytes % (Manual) 0 Blast Cells % (Manual) 0 Reactive Lymphocytes 0 Platelet Estimate Adequate Sodium Level 140 136-145 mmol/L Potassium Level 3.8 3.5-5.1 mmol/L Chloride Level 110 H 98-107 mmol/L Carbon Dioxide Level 25 20-31 mmol/L Anion Gap 5 5-15 Blood Urea Nitrogen 6 L 9-23 mg/dL Creatinine 0.76 0.550-1.02 mg/dL Glomerular Filtration Rate Calc 91 >90 mL/min BUN/Creatinine Ratio 7.9 L 10.0-20.0 Serum Glucose 96 74-106 mg/dL Calcium Level 8.9 8.7-10.4 mg/dL Total Bilirubin 0.2 0.2-1.0 mg/dL Aspartate Amino Transferase (AST) 234 H 13-40 U/L Alanine Aminotransferase (ALT) 287 H 7-40 U/L Alkaline Phosphatase 229 H 46-116 U/L Total Protein 5.9 5.7-8.2 g/dL Albumin 3.9 3.2-4.8 g/dL Urine Color Yellow Yellow Urine Clarity Clear Clear Urine pH 6.0 5.0-9.0 Urine Specific [place] 1.026 1.001-1.035 Urine Protein 1+ H Negative Urine Ketones 1+ H Negative Urine Blood 1+ H Negative /uL Urine Nitrite Negative Negative Urine Bilirubin Negative Negative Urine Urobilinogen 2 H Negative mg/dL Urine Leukocyte Esterase Trace Negative /uL Urine RBC 21 0 - 4 /hpf Urine WBC 2 0 - 5 /hpf Urine Squamous Epithelial Cells Few <5 /hpf Urine Bacteria None seen None Seen /hpf Urine Mucus Few None Seen Urine Glucose Normal Normal mg/dL Eosinophils (%) (Auto) 0.3 0.0-7.0 % Eosinophils # (Auto) 0 0-0.8 10 ^3/uL Basophils # (Auto) 0 0-0.2 10 ^3/uL Nucleated Red Blood Cells 0.0 % Lactic Acid Level 1.1 0.4-2.0 mmol/L Lipase 41 12-53 U/L Thyroid Stimulating Hormone (TSH) 1.45 0.55-4.78 uIU/mL CT SCAN ABD PELVIS IMPRESSION: 1. No acute abnormality in the abdomen or pelvis. 2. No free air or free fluid 3. No CT findings to suggest bowel obstruction 4. No nephrolithiasis or hydronephrosis Problems(with codes): (1) Intractable nausea and vomiting (2) Elevated liver enzymes (3) Left lower quadrant abdominal pain (4) Bright red blood per rectum Plan/Recommendation Plan Clear liquid diet IV fluid hydration Stool for WBC occult blood and bacterial culture IV PPI IV Zofran as needed for nausea vomiting Get right upper quadrant ultrasound to evaluate elevated liver enzymes Check hepatitis director of the biophysics facility labs We will discuss the possibility of the colonoscopy pending results of the above Plan discussed with: Other (None) AURA KENNEDY MD Aug 13, 2024 13:00
--- NOTE | 2024-08-13 14:35 | DVH ---
INDICATION: elevated liver tests TECHNIQUE: Multiple real-time sonographic images of the abdomen were obtained. COMPARISON: None FINDINGS: Hepatic parenchyma is mildly echogenic suggesting steatosis.. The liver measures 16.23 cm. No intrahepatic biliary ductal dilatation is noted. Gallbladder has been surgically removed. The common duct measures 5.49 mm cm and is unremarkable. N o pericholecystic fluid is noted. The right kidney measures 9.53 cm. No hydronephrosis. The pancreas is visualized and appears normal. The visualized portions of the IVC and aorta are grossly unremarkable. IMPRESSION: 1. 16.23 cm liver with changes suggesting steatosis 2. Gallbladder has been surgically removed. 3. Common bile duct measures 5.49 mm
--- NOTE | 2024-08-13 21:10 | DVHPN2 ---
Subjective Patient is doing well. No further bloody bowel movements. Blood pressure stable. Patient asymptomatic. GI to evaluate today. Reviewed: H&P Changes from previous H/P or p: No Changes General: Per HPI Objective Vitals Vital Signs Date Time Temp Pulse Resp B/P (MAP) Pulse Ox O2 Delivery O2 Flow Rate FiO2 08/13/24 18:03 81 18 118/73 08/13/24 17:00 98.1 98 98.1 08/13/24 08:00 Room Air* 0 21 Intake/Output Intake and Output 08/13/24 07:00 Intake Total 1050 ml Balance 1050 ml Intake Oral 50 ml IV Total 1000 ml # Voids 1 Exam GEN: Healthy appearing, well-developed, NAD. HEENT: NC/AT; MMM. CV: RRR, no m/r/g. LUNGS: CTAB, no w/r/c. ABD: Soft, NT/ND, NBS, no masses or organomegaly. EXT: skin Warm, well perfused. no rashes. No clubbing, cyanosis, or edema. NEURO: Ambulating with no limitations. No focal deficits. Medications Current Medications Medications Dose Ordered Sig/Doron Route Start Time Stop Time Status Last Admin Dose Admin Pantoprazole Sodium 40 mg BID IV 08/12/24 22:00 08/13/24 08:25 40 MG Levothyroxine Sodium 100 mcg QAM@0600 PO 08/13/24 06:00 08/13/24 06:15 100 MCG Atorvastatin Calcium 20 mg HS PO 08/12/24 22:00 08/12/24 23:55 20 MG Trazodone HCl 100 mg HS PO 08/12/24 22:00 Acetaminophen/ Hydrocodone Bitart 1 tab Q4HP PRN PO 08/12/24 19:45 Ondansetron HCl 4 mg Q4HP PRN IV 08/12/24 19:45 08/13/24 18:17 4 MG Docusate Sodium 100 mg BIDPRN PRN PO 08/12/24 19:45 Morphine Sulfate 2 mg Q4HPRN PRN IV 08/12/24 19:45 08/13/24 18:03 2 MG Nitroglycerin 0.4 mg Q5MINP PRN SL 08/12/24 20:30 Morphine Sulfate 2 mg Q30M PRN IV 08/12/24 20:30 Laboratory Results Laboratory Tests 08/13/24 05:57 Chemistry Test 08/13/24 05:57 Albumin 3.9 g/dL (3.2-4.8) Calcium Level 8.9 mg/dL (8.7-10.4) Total Protein 5.9 g/dL (5.7-8.2) LFT Test 08/13/24 05:57 Alanine Aminotransferase (ALT) 287 U/L (7-40) H Alkaline Phosphatase 229 U/L (46-116) H Aspartate Amino Transferase (AST) 234 U/L (13-40) H Total Bilirubin 0.2 mg/dL (0.2-1.0) Urinalysis Test 08/12/24 18:04 Urine Color Yellow (Yellow) Urine Clarity Clear (Clear) Urine pH 6.0 (5.0-9.0) Urine Specific [place] 1.026 (1.001-1.035) Urine Protein 1+ (Negative) H Urine Ketones 1+ (Negative) H Urine Blood 1+ /uL (Negative) H Urine Nitrite Negative (Negative) Urine Bilirubin Negative (Negative) Urine Urobilinogen 2 mg/dL (Negative) H Urine Leukocyte Esterase Trace /uL (Negative) Urine RBC 21 /hpf (0 - 4) Urine WBC 2 /hpf (0 - 5) Urine Squamous Epithelial Cells Few /hpf (<5) Urine Bacteria None seen /hpf (None Seen) Urine Mucus Few (None Seen) Urine Glucose Normal mg/dL (Normal) Labs and/or images reviewed: Labs reviewed by me, Image(s) reviewed by me Assessment/Plan Assessment/Plan Update 08/13 - -Patient is doing well. No further bloody bowel movements. Blood pressure stable. Patient asymptomatic. GI to evaluate today. # Lower GI bleed/BRBPR-CT Abdo with con shows no focus of active GI bleed. GI consulted, on PPI IV b.i.d., clear liquid diet # elevated LFT- RUQ U/S with hepatic steatosis, hep panel pending # intractable nausea and vomiting # p.o. intolerance # ketosis - UA with ketones +1. Likely from starvation ketosis # IV VD UA specific gravity is 1.026. Likely from recurrent nausea and vomiting # hypothyroid-continue home Synthroid dose # hyperlipidemia continue home Lipitor Diet CLD DVT prophylaxis SCDs GI prophylaxis PPI IV b.i.d. Med surge Full code Plan discussed with: Patient My Orders Orders - JESE SANCHEZ MD Procedure Category Date Status Time Clear Liq Diet DIET 08/13/24 Transmitted Lunch Date of Service: Aug 13, 2024 Billing Provider: JESE SANCHEZ MD Common Visit Codes: [id number] INP/OBS CARE(HIGH) JESE SANCHEZ MD Aug 13, 2024 21:10
[2024-08-14] VITALS (7 sets, daily range): BP systolic 86–125; BP diastolic 40–68; PULSE 51–78; RESP 16–19; TEMP 97.5–98.5; O2SAT 94–98
[2024-08-14] MEDS: METHOCARBAMOL 500 MG TAB PO ONE (01:42)
[2024-08-14 07:33] LABS: Basophils # (auto) 0 10 ^3/uL (0-0.2); Basophils % (auto) 0.4 % (0.0-2.0); Eosinophils # (auto) 0.3 10 ^3/uL (0-0.8); Hematocrit 42.9 % (36.0-46.0); Hemoglobin 14.5 g/dL (12.2-16.2); Lymphocytes # (auto) 2.1 10 ^3/uL (0.4-5.4); Lymphocytes % (auto) 30.3 % (10.0-50.0); Mean Corpuscular Hemoglobin 31.4 pg (28.0-32.0); Mean Corpuscular Hgb Conc. 33.7 g/dL (32.0-36.0); Mean Corpuscular Volume 93.1 fL (80.0-100.0); Monocytes # (auto) 0.9 10 ^3/uL (0-1.3); Monocytes % (auto) 13.7 % (0.0-12.0); Neutrophils # (auto) 3.6 10 ^3/uL (1.6-8.6); Neutrophils % (auto) 51.6 % (37.0-80.0); Platelet Count (auto) 221 10^3/uL (140-450); Red Blood Cells 4.61 10^6/uL (4.0-5.20); Red Cell Distribution Width 14.2 % (11.8-14.3); White Blood Cell 6.9 10^3/uL (4.4-10.8)
[2024-08-14 08:09] LABS: Anion Gap 8 (5-15); BUN/Creatinine Ratio 6.9 (10.0-20.0); Calcium 9.4 mg/dL (8.7-10.4); Carbon Dioxide 25 mmol/L (20-31); Glucose 85 mg/dL (74-106); Potassium 3.9 mmol/L (3.5-5.1); Sodium 142 mmol/L (136-145)
[2024-08-14 08:10] LABS: Alanine Aminotransferase 204 U/L (7-40); Alkaline Phosphatase 184 U/L (46-116); Blood Urea Nitrogen 5 mg/dL (9-23); Chloride 109 mmol/L (98-107)
[2024-08-14 08:11] LABS: Albumin 3.9 g/dL (3.2-4.8); Total Protein 5.9 g/dL (5.7-8.2)
[2024-08-14 08:12] LABS: Aspartate Aminotransferase 94 U/L (13-40); Bilirubin, Total 0.3 mg/dL (0.2-1.0)
[2024-08-14] MEDS: DOCUSATE SOD 100 MG CAP PO PRN (11:45)
[2024-08-14 12:05] LABS: Hepatitis A Ab IgM Negative; Hepatitis B Core IgM Negative (Negative); Hepatitis B Surface Antigen Negative (Negative)
[2024-08-14 13:24] LABS: Hepatitis C Antibody Negative (Negative)
[2024-08-14 13:53] LABS: INR 1.01 (0.9-1.15); Partial Thromboplastin Time 31.8 SEC (24.5-34.5); Prothrombin Time 10.7 sec (9.3-11.8)
--- NOTE | 2024-08-14 15:13 | DVH ---
Pelvic ultrasound HISTORY: adnexal pain Technique: 2-D real-time ultrasound was performed with sagittal and axial images submitted for evalua tion. Images were obtained transabdominally and transvaginally. FINDINGS: Uterus surgically absent. Right ovary 3 x 3 x 2.1 cm. Left ovary not seen No abnormal masses or fluid collections IMPRESSION: 1. Patient is post hysterectomy. No abnormal masses or fluid collections. Right ovary is normal. Lef t ovary not seen
[2024-08-14] MEDS ORDERED: LACTULOSE 20Gm/30ML SOLN PO SCH (15:15)
--- NOTE | 2024-08-14 15:16 | DVHPN2 ---
Progress Note Date Seen: Aug 14, 2024 Resident Creating Document: LIBORIO DAO RESIDENT Has the PT tested + for MRSA If YES, has PT been informed?: No Medical Necessity Reason Pt with a Central, PICC or Fol: No Subjective Review of Systems This is a 58-year-old female with past medical history of hyperlipidemia and thyroid disease who presented to [facility] ED with complaint of left lower quadrant abdominal pain. Patient reported that symptoms progressively got worse with diarrhea, nausea, vomiting, and blood with bowel movement. Patient was seen and evaluated in the ED. upon admission, the patient had elevated liver enzymes and alkaline phosphatase. Initial CT scan of the abdomen and pelvis was grossly unremarkable and liver ultrasound was showing liver steatosis but no additional acute intra-abdominal abnormalities. Hepatitis panel was ordered but it still pending. The patient denies prior colonoscopy. The patient was admitted for further assessment and management of her condition. Patient seen and examined at bedside. The patient has no acute complaints and states that he is feeling well overall. The patient is currently on pantoprazole 40 mg IV b.i.d., atorvastatin 20 mg q.d., ondansetron 4 mg q.4 p.r.n.. The patient states that has not been able to pass stools since Wednesday. The patient is currently on docusate 100 mg b.i.d. but we will add lactulose 30 cc daily since constipation has not improved. We will also wait for stool sample to be sent for stool blood occult. We are also still pending for hepatitis panel. We have an extensive discussion with the patient at bedside and since the hemoglobin has been overall stable both patient and medical staff agree on performing a colonoscopy in the outpatient setting. ROS Constitutional: Denies weight loss, fever and chills. HEENT: Denies changes in vision and hearing. Respiratory: Denies shortness of breath and cough Cardiovascular: Denies chest discomfort or palpitations GI: Denies abdominal pain, nausea, vomiting and diarrhea. : Denies dysuria and urinary frequency. Musculoskeletal: Denies myalgias and joint pain Skin: Denies rash and pruritus. Neurological: Denies dizziness, headache, vision or hearing problems Objective vital signs Vital Sign Date Time Temp Pulse Resp B/P (MAP) Pulse Ox O2 Delivery O2 Flow Rate FiO2 08/14/24 13:00 97.5 70 19 125/68 (87) 97 97.5 08/14/24 08:00 Room Air* 0 21 Total Intake and Output 08/13/24 08/13/24 08/14/24 15:00 23:00 07:00 Intake Total 1000 ml 600 ml Balance 1000 ml 600 ml medications Current Medications Medications Dose Ordered Sig/Doron Route Start Time Stop Time Status Last Admin Dose Admin Pantoprazole Sodium 40 mg BID IV 08/12/24 22:00 08/14/24 11:34 40 MG Levothyroxine Sodium 100 mcg QAM@0600 PO 08/13/24 06:00 08/14/24 05:46 100 MCG Atorvastatin Calcium 20 mg HS PO 08/12/24 22:00 08/13/24 22:22 20 MG Trazodone HCl 100 mg HS PO 08/12/24 22:00 08/13/24 22:22 100 MG Acetaminophen/ Hydrocodone Bitart 1 tab Q4HP PRN PO 08/12/24 19:45 Ondansetron HCl 4 mg Q4HP PRN IV 08/12/24 19:45 08/14/24 11:35 4 MG Docusate Sodium 100 mg BIDPRN PRN PO 08/12/24 19:45 08/14/24 11:45 100 MG Morphine Sulfate 2 mg Q4HPRN PRN IV 08/12/24 19:45 08/14/24 11:39 2 MG Nitroglycerin 0.4 mg Q5MINP PRN SL 08/12/24 20:30 Morphine Sulfate 2 mg Q30M PRN IV 08/12/24 20:30 Examination Physical Examination General: Patient alert and oriented in person, place and time. Patient following commands. HEENT: Normocephalic, atraumatic, moist mucous membranes Respiratory/pulmonary: Clear lungs bilaterally, vesicular murmurs present in almost all lung swan, no associated crackles or wheezes. Cardiovascular: Normal heart sounds S1 and S2 with no associated murmurs Abdomen: Abdomen nondistended, there is very minimal cramps in the lower abdomen but has improved considerably compared to admission. There are no palpable masses at this time. Extremities: There is no peripheral edema present at the lower extremities. Peripheral Pulses: 3+ Radial (R). 3+ Radial (L). 3+ Dorsalis pedis (R). 3+ Dorsalis pedis(L) Skin: No rashes or pruritus, there is no sacral edema present at this time. Neurological: Intact cranial nerves with no focal neurologic deficits laboratory and microbiology Laboratory Tests 08/14/24 06:01 Test 08/14/24 06:01 Range/Units Serum Glucose 85 74-106 mg/dL Problem List/Assessment/Plan Problem List/Assessment/Plan Assessment/Plan Acute left lower quadrant abdominal pain with Intractable nausea and vomiting (resolving) -Patient is currently on clear liquid diet -progress diet as tolerated -IV Zofran p.r.n. -IV Protonix pantoprazole 40 mg IV b.i.d. -liver ultrasound was performed showing liver steatosis but no acute intra- abdominal abnormalities -IV fluids Acute transaminitis -last AST was 94, ALT 204, alkaline phosphatase 184 (improving compared to previous days) -ordered hepatitis-B panel which is still pending -monitor liver enzymes Possible lower GI bleed (Not active) -hemoglobin today was 14.6 and has been stable -send stool for WBC, occult blood test and bacterial culture -colonoscopy in the outpatient setting Acute on chronic constipation -currently on docusate 100 mg b.i.d. -start lactulose 30 cc q.d. Goals of care discussed with the patient at bedside, FULL CODE Plan discussed with Dr. Richardson Plan discussed with: Patient My Orders My Orders Orders - LIBORIO DAO Procedure Category Date Status Time Communication Order ORDERS 08/14/24 Transmitted 10:17 LIBORIO DAO Aug 14, 2024 15:16
[2024-08-14 15:27] LABS: Hepatitis B Core Total AB Negative (Negative)
[2024-08-14 15:28] LABS: Hepatitis A Total Antibody Negative (Negative); Hepatitis B Surface Antibody Negative (Negative); Hepatitis B Surface Antigen Negative (Negative); Hepatitis C Antibody Negative (Negative)
[2024-08-14] MEDS ORDERED: PANT40TA2 PO (16:21)
[2024-08-14] MEDS ORDERED: SUCR1SUS26 PO (16:21)
[2024-08-14] MEDS ORDERED: LACT10SO3 PO (16:26)
--- NOTE | 2024-08-14 16:29 | DVHDS2 ---
Discharge Summary Date of Admission Aug 12, 2024 at 20:20 Date of Discharge: Aug 14, 2024 Labs/Diagnostic Data: Laboratory Results Test 08/14/24 12:16 08/14/24 06:01 08/13/24 05:57 08/12/24 18:04 Prothrombin Time 10.7 sec (9.3-11.8) Prothrombin Time INR 1.01 (0.9-1.15) Activated Partial Thromboplast Time 31.8 SEC (24.5-34.5) White Blood Count 6.9 10^3/uL (4.4-10.8) Red Blood Count 4.61 10^6/uL (4.0-5.20) Hemoglobin 14.5 g/dL (12.2-16.2) Hematocrit 42.9 % (36.0-46.0) Mean Corpuscular Volume 93.1 fL (80.0-100.0) Mean Corpuscular Hemoglobin 31.4 pg (28.0-32.0) Mean Corpuscular Hemoglobin Concent 33.7 g/dL (32.0-36.0) Red Cell Distribution Width 14.2 % (11.8-14.3) Platelet Count 221 10^3/uL (140-450) Mean Platelet Volume 8.1 fL (6.9-10.8) Neutrophils (%) (Auto) 51.6 % (37.0-80.0) Lymphocytes (%) (Auto) 30.3 % (10.0-50.0) Monocytes (%) (Auto) 13.7 % (0.0-12.0) Eosinophils (%) (Auto) 4.0 % (0.0-7.0) Basophils (%) (Auto) 0.4 % (0.0-2.0) Neutrophils # (Auto) 3.6 10 ^3/uL (1.6-8.6) Lymphocytes # (Auto) 2.1 10 ^3/uL (0.4-5.4) Monocytes # (Auto) 0.9 10 ^3/uL (0-1.3) Eosinophils # (Auto) 0.3 10 ^3/uL (0-0.8) Basophils # (Auto) 0 10 ^3/uL (0-0.2) Nucleated Red Blood Cells 0.0 % Sodium Level 142 mmol/L (136-145) Potassium Level 3.9 mmol/L (3.5-5.1) Chloride Level 109 mmol/L (98-107) Carbon Dioxide Level 25 mmol/L (20-31) Anion Gap 8 (5-15) Blood Urea Nitrogen 5 mg/dL (9-23) Creatinine 0.72 mg/dL (0.550-1.02) Glomerular Filtration Rate Calc 97 mL/min (>90) BUN/Creatinine Ratio 6.9 (10.0-20.0) Serum Glucose 85 mg/dL (74-106) Calcium Level 9.4 mg/dL (8.7-10.4) Total Bilirubin 0.3 mg/dL (0.2-1.0) Aspartate Amino Transferase (AST) 94 U/L (13-40) Alanine Aminotransferase (ALT) 204 U/L (7-40) Alkaline Phosphatase 184 U/L (46-116) Total Protein 5.9 g/dL (5.7-8.2) Albumin 3.9 g/dL (3.2-4.8) Hepatitis A IgM Antibody Negative Hepatitis A Antibody Total Negative (Negative) Hepatitis B Surface Antigen Negative (Negative) Hepatitis B Surface Antibody Negative (Negative) Hepatitis B Core Total Antibody Negative (Negative) Hepatitis B Core IgM Antibody Negative (Negative) Hepatitis C Antibody Negative (Negative) Differential Total Cells Counted 100.0 (100) Neutrophils % (Manual) 59 (37.0-80.0) Band Neutrophils % (Manual) 0 Lymphocytes % (Manual) 34 (10.0-50.0) Monocytes % (Manual) 7 (0-12) Eosinophils % (Manual) 0 (0-7) Basophils % (Manual) 0 (0.0-2.0) Metamyelocytes % (manual) 0 Myelocytes % (Manual) 0 Promyelocytes % (Manual) 0 Blast Cells % (Manual) 0 Reactive Lymphocytes 0 Platelet Estimate Adequate Urine Color Yellow (Yellow) Urine Clarity Clear (Clear) Urine pH 6.0 (5.0-9.0) Urine Specific [place] 1.026 (1.001-1.035) Urine Protein 1+ (Negative) Urine Ketones 1+ (Negative) Urine Blood 1+ /uL (Negative) Urine Nitrite Negative (Negative) Urine Bilirubin Negative (Negative) Urine Urobilinogen 2 mg/dL (Negative) Urine Leukocyte Esterase Trace /uL (Negative) Urine RBC 21 /hpf (0 - 4) Urine WBC 2 /hpf (0 - 5) Urine Squamous Epithelial Cells Few /hpf (<5) Urine Bacteria None seen /hpf (None Seen) Urine Mucus Few (None Seen) Urine Glucose Normal mg/dL (Normal) Test 08/12/24 13:17 Lactic Acid Level 1.1 mmol/L (0.4-2.0) Lipase 41 U/L (12-53) Thyroid Stimulating Hormone (TSH) 1.45 uIU/mL (0.55-4.78) Other Laboratory Tests 08/14/24 06:01 Brief Hx & Hospital Course: 58-year-old female with past medical history of hyperlipidemia and thyroid disease who presented to [facility] ED with complaint of left lower quadrant abdominal pain. Patient reported that symptoms progressively got worse with diarrhea, nausea, vomiting, and blood with bowel movement. On presentation, concern for lower GI bleed. Hemoglobin stable 16, lowest 14.3. CT abdomen with con is unable to find any focus of acute bleed and no acute abdomen findings. Patient is started on PPI b.i.d., type and cross, clear liquid diet. GI is consulted and evaluated the patient as stable for outpatient close follow up in outpatient colonoscopy. Patient has no prior colonoscopies. Patient has low blood pressure at baseline ranging between 65-70 map, patient asymptomatic. Patient is swollen depleted with specific gravity 1.026. Patient has transaminitis, RUQ U/S is shows hepatic steatosis and otherwise normal. Trend of LFTs shows improvement. Hepatitis panel is negative. Her Abdominal pain appears to be in bilateral inguinal regions. No masses or hernias noted. Patient has history of partial ROYER, possible guardian sores, pelvic ultrasound finds normal right ovary, normal left ovary found. No acute source of adnexal/pelvic source of pain identifiable. Tried 1 X Robaxin, pain does not improve. Pain is tolerable with p.r.n. Tylenol and NSAID. Vital signs stable, plan for outpatient colonoscopy, labs stable. Patient is safe for discharge with plan below Diagnosis: Acute lower GI bleed, resolving; intractable abdominal pain, resolved; intractable nausea and vomiting, intravascular volume depletion; resolved; transaminitis, stable; hypotension, asymptomatic; acute on chronic constipation; hyperlipidemia; thyroid disease; Discharge plan - protonix 40mg 2x/day for 1 month - lactulose 15mL 2x/day for 1 month for constipation - referal to GI Dr Stephon Richardson for outpatient colonscopy - return to ED if bleeding recurs in large amount with sob/dizziness - f/u with PCP for discharge review Visitation and planning required 35 minutes Condition at Discharge: Fair Final Diagnosis/Problems List Acute lower GI bleed, resolving; intractable abdominal pain, resolved; intractable nausea and vomiting, intravascular volume depletion; resolved; transaminitis, stable; hypotension, asymptomatic; acute on chronic constipation; hyperlipidemia; thyroid disease; Discharge Disposition: Home Discharge Instruct/Medications Diet: Regular Activity: No Restrictions, As Tolerated Discharge Statement: "Patient was advised to return to the ER or call 911 if any headaches, dizziness, shortness of breath, chest pain, abdominal pain, bleeding, fevers, or worsening of medical condition. Patient was counseled about treatment plan, medications, possible side effects, patientverbalized understanding. All questions were answered to the best of my ability. This discharge took greater then 30 minutes in planning, reviewing documentation, counseling the patient, and discussing with other team members." ASSESSMENT ASSESSMENT Assessment Acute lower GI bleed, resolving; intractable abdominal pain, resolved; intractable nausea and vomiting, intravascular volume depletion; resolved; transaminitis, stable; hypotension, asymptomatic; acute on chronic constipation; hyperlipidemia; thyroid disease; Date of Service: Aug 14, 2024 Billing Provider: JESE SANCHEZ MD Common Visit Codes: 45746-FDA/OBS DISCH DAY >30min JESE SANCHEZ MD Aug 14, 2024 16:29
== END 2024-08-14 18:00 | disposition home or self-care (01) | DRG 379 ==
LOC: ER 12:36 → OVERFLOW 20:20 → EAST 23:18
PROVIDERS: ADMIT Nurse Practitioner Family; ATTEND Student in an Organized Health Care Education/Training Program
DX: K92.2 Gastrointestinal hemorrhage, unspecified (principal); K76.0 Fatty (change of) liver, not elsewhere classified; E78.5 Hyperlipidemia, unspecified; E03.9 Hypothyroidism, unspecified; K59.09 Other constipation; R74.01 Elevation of levels of liver transaminase levels; E86.1 Hypovolemia; I95.9 Hypotension, unspecified; Z90.49 Acquired absence of other specified parts of digestive tract; Z90.710 Acquired absence of both cervix and uterus; Z79.899 Other long term (current) drug therapy
CPT/HCPCS: 36415; 74177; 76705; 76856; 80053; 80074; 81001; 83605; 83690; 84443; 85007; 85025; 85027; 85610; 85730; 86704; 86706; 86708; 86803; 87340; 99291; G0378; J2405; J2470

== ENCOUNTER 2025-03-20 07:14 | Day surgery (SDC) | payer OTHER ==
[2025-03-13 16:44] LABS: Hematocrit 43.2 % (36.0-46.0); Hemoglobin 14.8 g/dL (12.2-16.2); Mean Corpuscular Hemoglobin 31.7 pg (28.0-32.0); Mean Corpuscular Volume 92.6 fL (80.0-100.0); Nucleated Red Blood Cells % 0.0 %
[2025-03-13 16:45] LABS: Urine Protein, UAD Negative (Negative)
[2025-03-13 16:55] LABS: INR 1.0 (0.9-1.15); Partial Thromboplastin Time 35.0 SEC (24.5-34.5); Prothrombin Time 10.6 sec (9.3-11.8)
[2025-03-13 17:02] LABS: Alanine Aminotransferase 16 U/L (7-40); Albumin 4.8 g/dL (3.2-4.8); Alkaline Phosphatase 77 U/L (46-116); Anion Gap 8 (5-15); BUN/Creatinine Ratio 22.8 (10.0-20.0); Blood Urea Nitrogen 21 mg/dL (9-23); Calcium 10.3 mg/dL (8.7-10.4); Carbon Dioxide 28 mmol/L (20-31); Chloride 105 mmol/L (98-107); Glucose 84 mg/dL (74-106); Potassium 4.1 mmol/L (3.5-5.1); Sodium 141 mmol/L (136-145); Total Protein 6.7 g/dL (5.7-8.2)
[2025-03-13 17:03] LABS: Bilirubin, Total 0.3 mg/dL (0.2-1.0)
[~2025-03-20] VITALS: Ht 165.1 cm; Wt 86.2 kg
[~2025-03-20 07:14] MED LIST changes: -ADENOSINE 69 MG in GIVE UN-DILUTED 0 ML IV ONE; -ADENOSINE 90 MG/30 ML INJ IV ONE; +ATOR20TA PO; +B-CO1TAB8 PO; +CHOL25CH3 PO; +ESCI20TA PO; +FOLITAB22 PO; +IBU600T PO; +LEVO100T8 PO; +METH-1181 PO; +MULT-1228 PO; +PANT40TA2 PO; +SEMA2INJ3 SC; +TRAZ-228 PO; +VITA100T3 PO; +[UNRECOGNIZED DRUG - CODE] PO; +[UNRECOGNIZED DRUG - CODE] PO
[2025-03-20 07:25] VITALS: TEMP 97.3
[2025-03-20] MEDS ORDERED: ceFAZolin 2 GM/D5W50ml 50 ML IV ONE (07:34)
[2025-03-20] MEDS ORDERED: BUPIVACAINE HCL 50 ML ONE (07:55)
[2025-03-20] MEDS ORDERED: SUCCINYLCHOLINE CHLORIDE 20 MG/ML 10ML VIAL IV ONE (08:18)
[2025-03-20] MEDS ORDERED: fentaNYL CITRATE 100 MCG/2 ML VL ONE (08:21)
[2025-03-20] MEDS ORDERED: HYDROmorphone HCL 2 MG/ML VL/or syr ONE ×2 (08:22→12:03)
[2025-03-20] MEDS ORDERED: ROCURONIUM 10MG/ML 10ML VIAL IV ONE (08:22)
[2025-03-20] MEDS ORDERED: PROPOFOL 10 MG/ML 20 ML IV ONE (08:22)
[2025-03-20] MEDS ORDERED: PHENYLEPHRINE HCL 10 MG/ML VL ONE (08:26)
[2025-03-20] MEDS ORDERED: ONDANSETRON HCL 4 MG/2 ML VIAL ONE ×2 (09:19→12:17)
[2025-03-20] MEDS ORDERED: ROPIVACAINE 0.5% (5MG/ML) 20ML AMPULE IJ ONE (10:29)
[2025-03-20 11:13] VITALS: PULSE 65; RESP 13; O2SAT 95
[2025-03-20] MEDS ORDERED: MEPERIDINE HCL (25 MG/ML) 1ML VIAL IV PRN (11:30)
[2025-03-20] MEDS ORDERED: ONDANSETRON HCL 4 MG/2 ML VIAL IV ONE (11:30)
[2025-03-20] MEDS ORDERED: ACETAMINOPHEN IV 100 ML IV ONE (11:32)
[2025-03-20] MEDS: ACETAMINOPHEN IV 1000 MG/100ML (10MG/ML) IV PRN (11:50)
[2025-03-20] MEDS: HYDROmorphone HCL 2 MG/ML VL/or syr IV PRN (11:59)
--- NOTE | 2025-03-20 12:28 | DVHOP2 ---
Operative Report - 2 Report Details Date: 03/20/25 Preop Diagnosis: Right shoulder rotator cuff tear with subacromial impingement Postop Diagnosis: Right shoulder rotator cuff tear with subacromial impingement and biceps tendon tear Surgeon: Efrem Meléndez MD [employer] Communities Designer: Fatuma Rascon, Physician S[employer] Commun[employer] Designer Anesthesiologist: Dr Edmond Anesthesia: General, Regional Implant: Arthrex FiberTak x1, Arthrex SwiveLock x1 Consent: The patient was informed of the risks and benefits of the procedure. These include but are not limited to complications of anesthesia, postoperative infection, incomplete relief of symptoms, recurrence of symptoms, damage to blood vessels, nerves and tendons, deep venous thrombosis, pulmonary embolism and possible need for repeat surgery in the future. Complications: None Estimated Blood Loss: Less than 5 mL Indications for Surgery: The patient is a 59-year-old female who presented to the clinic with a history of chronic shoulder pain. Clinical and radiological evaluation demonstrated high-grade partial tear of the rotator cuff. Nonoperative and operative management options were discussed. Surgery in the form of shoulder arthroscopy with rotator cuff repair was discussed as she had failed nonoperative jazmyn gement. Pros and cons were discussed. Surgical complications including it in neurovascular injury, infection, arthrofibrosis, loss of limb or life were discussed. The patient decided to proceed with the surgical option Name of Procedure Performed Left shoulder arthroscopy, rotator cuff repair using double row technique, arthroscopic biceps tenodesis, subacromial decompression with acromioplasty Procedure Details Procedure Details: The patient was identified in the preoperative holding area and the surgical site was marked. The consent was verified. The patient was brought into the operating room and placed supine on the operating table. General anesthesia was administered. The beachchair attachment was applied to the operating table. The patient was now brought up into the beachchair position, approximately 60 degrees. The arm was prepped and draped in the usual sterile manner. The arm was placed in the attachment for the spyder, mechanical arm stoner. The extremity was examined under anesthesia and was found to have good passive range of motion. A timeout was performed to confirm the identity of the patient, the nature of surgery, the site of surgery, the available of implants and x-rays and allergies to medications A standard posterior portal established. A 30 degree scope was inserted A standard anterior portal was established. A probe was inserted and the findings are as follows: 1. Intact subscapularis tendon 2. Significant fraying and tear of the biceps tendon 3. Circumferential degenerative labral tear 4. Grade I-II chondromalacia 5. Significant synovitis 6. Full-thickness rotator cuff tear, medium-sized with retraction to cartilage The subacromial space was entered. Significant bursitis was noted. Extensive releases were performed. A thermal ablation Wand was used on the superior and inferior surface of the rotator cuff to do the releases. Rotator interval was also released. This was AU shaped tear. [id number] suture was inserted and a knot was tied to turn this tear into a crescent-shaped tear. I decided to do a double row repair for this tear. A medial row Arthrex all suture triple loaded anchor was inserted anteriorly. A cannula was inserted into the lateral portal. A suture penetration and grasping device was used to grasp the tissue and passed the sutures. The sutures were sequentially passed from anterior to posterior direction. Six passes were made. The sutures were now tied for an excellent m edial row footprint coverage. The anterior two sutures were passed through the biceps tendon for a biceps tenodesis and then passed through the cuff as well. One of the sutures pulled out and a fiber link suture was inserted to reinforce the repair Biceps tenodesis was completed. All six sutures were now inserted into a knotless lateral row anchor. This was used as per manufacture's guidelines. A punch was used. Next, the anchor was used and inserted into the bone. Good fixation was noted. Subacromial decompression was completed with acromioplasty to remove approximately 5 mm of acromion as it was downsloping in nature. Irrigation was given and the skin portals were closed with 2-0 nylon Sterile dressing was applied. Local anesthetic was given. Shoulder immobilizer was applied Disposition: Good, the patient was extubated and taken to recovery without any complications. The patient was examined in the recovery and had intact neurovascular exam Plan: To remain in the brace. Follow-up in 1 week. May start passive range of motion in two weeks. To start active assisted range of motion in six weeks. To start active motion in 10 weeks. Condition Good Disposition Home EFREM MELÉNDEZ MD Mar 20, 2025 12:28
[2025-03-20 13:30] VITALS: BP 102/60; PULSE 65; RESP 17; O2SAT 98
== END 2025-03-20 13:50 | disposition home or self-care (01) ==
LOC: SUR 07:14
PROVIDERS: ATTEND Orthopaedic Surgery Sports Medicine
DX: M75.121 Complete rotator cuff tear or rupture of right shoulder, not specified as traumatic (principal); M25.811 Other specified joint disorders, right shoulder; M94.211 Chondromalacia, right shoulder; M65.811 Other synovitis and tenosynovitis, right shoulder; S46.211A Strain of muscle, fascia and tendon of other parts of biceps, right arm, initial encounter; S43.431A Superior glenoid labrum lesion of right shoulder, initial encounter; E66.9 Obesity, unspecified; Z68.31 Body mass index [BMI] 31.0-31.9, adult; Z79.899 Other long term (current) drug therapy; Z90.49 Acquired absence of other specified parts of digestive tract; Z90.710 Acquired absence of both cervix and uterus; Z98.890 Other specified postprocedural states; X58.XXXA Exposure to other specified factors, initial encounter; Y93.89 Activity, other specified; Y92.89 Other specified places as the place of occurrence of the external cause; Y99.8 Other external cause status
CPT/HCPCS: 29826; 29827; 29828; 36415; 80053; 81001; 85025; 85610; 85730; C1713; J0169; J0330; J0690; J1100; J1171; J2371; J2405; J2704; J2795; J3010; J3490; A4565; J0131